=== PATIENT | male | born 1995 | race Caucasian/White ===

== ENCOUNTER 2021-05-20 02:56 | Emergency (ER) | payer SELFPAY ==
--- NOTE | 2021-05-20 05:38 | XRay Report ---
CHEST 1 VIEW INDICATION / CLINICAL INFORMATION: PALPITATIONS. COMPARISON: None available. FINDINGS: SUPPORT DEVICES: None. HEART / MEDIASTINUM: No significant abnormality. LUNGS / PLEURA: The lungs are clear. No pneumothorax. BONES: No significant osseous abnormality. ADDITIONAL FINDINGS: No significant additional findings. IMPRESSION: 1. No active cardiopulmonary disease. Signer Name: Ja Roman II, MD Signed: 05/20/2021 5:34 AM Workstation Name: [id number]
[2021-05-20 05:42] LABS: Bilirubin,Urine NEG (Negative); Blood,Urine NEG (Negative); Color,Urine Straw (Yellow); Protein,Urine <15 mg/dL mg/dL (Negative); Urobilinogen,Urine < 2.0 mg/dL (<2.0)
[2021-05-20 05:53] LABS: RBC,Urine < 1.0 /HPF (0.0-6.0); WBC,Urine < 1.0 /HPF (0.0-6.0)
[2021-05-20 05:55] LABS: Amphetamine Screen,Urine Negative; Benzodiazepines Screen,Urine Negative; Cocaine Screen,Urine Negative; Methadone Screen,Urine Negative; Opiate Screen,Urine Negative
[2021-05-20 05:57] LABS: Basophils % (Auto) 0.2 % (0.0-1.8); Eosinophils % (Auto) 0.1 % (0.0-4.3); Hematocrit 42.8 % (35.5-45.6); Hemoglobin 14.1 gm/dl (11.8-15.2); Lymphocytes # (Auto) 1.9 K/mm3 (1.2-5.4); Lymphocytes % (Auto) 11.3 % (13.4-35.0); Mean Corpuscular HGB Conc 33 % (32-34); Mean Corpuscular Volume 91 fl (84-94); Monocytes # (Auto) 0.9 K/mm3 (0.0-0.8); Monocytes % (Auto) 5.5 % (0.0-7.3); Platelet Count 220 K/mm3 (140-440); Red Blood Count 4.71 M/mm3 (3.65-5.03); Red Cell Distribution Width 12.8 % (13.2-15.2)
[2021-05-20 05:59] VITALS: BP 136/82
[2021-05-20 06:08] LABS: Cannabinoid Screen,Urine Positive
[2021-05-20 06:17] LABS: Alanine Aminotransferase 37 units/L (7-56); Albumin 4.6 g/dL (3.9-5); Blood Urea Nitrogen 11 mg/dL (9-20); Calcium 8.9 mg/dL (8.4-10.2); Hemolysis Index 37
[2021-05-20 06:18] LABS: BUN/Creatinine Ratio 16
[2021-05-20 06:38] LABS: Chol/HDL Ratio 3.38 %; HDL Cholesterol 52 mg/dL (40-59); LDL Cholesterol,Direct 113 mg/dL (50-130)
[2021-05-20] MEDS ORDERED: LACTATED RINGERS 1,000 ML IV ONE (06:52)
[2021-05-20] MEDS ORDERED: LORazepam 2 MG/ML VIAL IV NR (06:52)
--- NOTE | 2021-05-20 07:00 | Emergency Department Report ---
ED General Adult HPI - General Chief complaint: Arrhythmia/Palpitations Stated complaint: HEART RACING Time Seen by Provider: 05/20/21 06:08 Source: patient, RN notes reviewed Mode of arrival: Ambulatory Limitations: No Limitations - History of Present Illness Initial comments: The patient is a pleasant and cooperative 25-year-old gentleman, who is not known to myself previously, who is currently visiting from [place], presenting to the ER today with a complaint of painless heart racing and palpitations. Reports recreational marijuana gummy ingestion, and consumption of "a lot of soda." He denies physical pain. He does report a recent 2-hour airplane trip from [place] here to [place]. He denies additional injuries and complaints. Specifically denies personal/family history of DVT/PE/ACS. He believes his symptoms started after consumption of the marijuana. -: This morning Consistency: constant Improves with: none Worsens with: none Associated Symptoms: denies other symptoms - Related Data Previous Rx's Medication Instructions Recorded Last Taken Type Aspirin [Aspirin BABY CHEW TAB] 81 mg PO QDAY #30 tab.chew 05/20/21 Unknown Rx Allergies Allergy/AdvReac Type Severity Reaction Status Date / Time No Known Allergies Allergy Verified 05/20/21 07:48 ED Review of Systems ROS: Stated complaint: HEART RACING Other details as noted in HPI Constitutional: denies: fever Eyes: denies: vision change ENT: denies: epistaxis Respiratory: denies: cough Cardiovascular: palpitations. denies: chest pain Gastrointestinal: denies: abdominal pain, nausea, vomiting, hematemesis, melena, hematochezia Neurological: denies: weakness Psychiatric: anxiety. denies: visual hallucinations, suicidal thoughts ED Past Medical Hx - Medications Home Medications: Home Medications Medication Instructions Recorded Confirmed Last Taken Type Aspirin [Aspirin BABY CHEW TAB] 81 mg PO QDAY #30 tab.chew 05/20/21 Unknown Rx ED Physical Exam - General Limitations: No Limitations General appearance: alert, anxious - Head Head exam: Present: atraumatic, normocephalic - Eye Eye exam: Present: normal appearance, EOMI. Absent: nystagmus - ENT ENT exam: Present: normal exam, normal orophraynx, mucous membranes moist, normal external ear exam - Neck Neck exam: Present: normal inspection, full ROM. Absent: tenderness, meningismus - Respiratory Respiratory exam: Present: normal lung sounds bilaterally. Absent: respiratory distress, wheezes, rales, rhonchi, stridor, decreased breath sounds - Cardiovascular Cardiovascular Exam: Present: normal rhythm, tachycardia, normal heart sounds. Absent: bradycardia, irregular rhythm, systolic murmur, diastolic murmur, rubs, gallop - GI/Abdominal GI/Abdominal exam: Present: soft. Absent: distended, tenderness, guarding, rebound, rigid, pulsatile mass - Rectal Rectal exam: Present: deferred - Extremities Exam Extremities exam: Present: normal inspection, full ROM, other (2+ pulses noted in the bilateral upper and lower extremities. There is no palpable cord. negative Homans sign. Muscular compartments are soft. The pelvis is stable.). Absent: pedal edema, calf tenderness - Back Exam Back exam: Present: normal inspection, full ROM. Absent: tenderness, CVA tenderness (R), CVA tenderness (L), paraspinal tenderness, vertebral tenderness - Neurological Exam Neurological exam: Present: alert, oriented X3, normal gait, other (No facial droop. Tongue midline. Extraocular movements intact bilaterally. Facial sensation intact to light touch in V1, V2, V3 distribution bilaterally. 5 and a 5 strength in 4 extremities. Sensation intact to light touch in 4 extremities.). Absent: motor sensory deficit - Psychiatric Psychiatric exam: Present: anxious. Absent: homicidal ideation, suicidal ideation - Skin Skin exam: Present: warm, dry, intact, normal color. Absent: rash ED Course Vital Signs 05/20/21 05/20/21 05/20/21 03:06 03:25 05:57 Temperature 99.3 F Pulse Rate 134 H 108 H Respiratory 20 Rate Blood Pressure 136/82 Blood Pressure 138/58 [Right] O2 Sat by Pulse 98 100 99 Oximetry - Reevaluation(s) Reevaluation #1: 05/20/21 06:57 Differential diagnosis, including but not limited to: Marijuana intoxication, caffeine ingestion, electrolyte derangement, thyroid derangement, pulmonary embolism, myocarditis, pericarditis Assessment and plan: 25-year-old gentleman, who is afebrile, but tachycardic, after recent marijuana and caffeinated soda ingestion, who is presenting with painless palpitations. He is not tachypneic or hypoxic. No leg pain or leg swelling. Laboratory studies were sent prior to my personal evaluation of this patient. His leukocytosis is likely a stress reaction, secondary to the aforementioned consumption of marijuana and caffeinated soda. For unclear reasons, a troponin is sent on this patient who is not having chest pain, and comes back mildly elevated. I suspect that this is a type II troponin leak. Patient is awake, alert, oriented, sober, of sound mind, and exhibits decision- making capacity. He does not meet criteria for 1013 hold or involuntary confinement. Have recommended observation in the emergency room, repeat troponin, repeat EKG, we will send appropriate laboratory studies to risk stratify for pulmonary embolism, as well as CK, magnesium, and TSH. The patient is advised to discontinue marijuana and recreational drug consumption. He is agreeable to this plan of care. We will discuss with cardiology once the remainder of his diagnostic studies have resulted. 05/20/21 07:01 EKG #2 is interpreted at 06: 53 sinus rhythm, tachycardia, rate 105 bpm. Normal axis, normal P wave axis, motion artifact, QTC 4 4 4 ms. This is an abnormal EKG. This is not a STEMI 05/20/21 08:34 D-dimer negative. TSH unremarkable. Repeat troponin downtrending. Repeat EKG unremarkable. Patient ambulatory with a steady gait and is clinically sober. He is asking to be discharged. We will discussed with cardiology, but anticipate discharge with close conservative management and outpatient follow-up 05/20/21 08:39 Offered patient fluids and Ativan, which he declined. These are not medically necessary at this time. 05/20/21 09:30 Patient is very anxious to leave. Have again offered to patient that we are waiting to discuss with cardiology on-call. Patient adamant that he will not leave AGAINST MEDICAL ADVICE. Patient presents as awake, alert, oriented, sober, of sound mind, and exhibits decision-making capacity. Risks of leaving, including , disability, paralysis, permanent loss of quality of life are discussed with the patient, who was able to articulate these risks in his own words. This conversation was witnessed by nurse Lilia De Jesus Patient is informed that he may return to the emergency room right away if and when he changes his mind ED Medical Decision Making - Lab Data Result diagrams: 05/20/21 05:17 05/20/21 05:17 Vital Signs 05/20/21 05/20/21 05/20/21 03:06 03:25 05:57 Temperature 99.3 F Pulse Rate 134 H 108 H Respiratory 20 Rate Blood Pressure 136/82 Blood Pressure 138/58 [Right] O2 Sat by Pulse 98 100 99 Oximetry Lab Results 05/20/21 05/20/21 05/20/21 Range/Units 05:17 05:17 05:17 WBC 17.0 H (4.5-11.0) K/mm3 RBC 4.71 (3.65-5.03) M/mm3 Hgb 14.1 (11.8-15.2) gm/dl Hct 42.8 (35.5-45.6) % MCV 91 (84-94) fl MCH 30 (28-32) pg MCHC 33 (32-34) % RDW 12.8 L (13.2-15.2) % Plt Count 220 (140-440) K/mm3 Lymph % (Auto) 11.3 L (13.4-35.0) % [place] % (Auto) 5.5 (0.0-7.3) % Eos % (Auto) 0.1 (0.0-4.3) % Baso % (Auto) 0.2 (0.0-1.8) % Lymph # (Auto) 1.9 (1.2-5.4) K/mm3 [place] # (Auto) 0.9 H (0.0-0.8) K/mm3 Eos # (Auto) 0.0 (0.0-0.4) K/mm3 Baso # (Auto) 0.0 (0.0-0.1) K/mm3 Seg Neutrophils % 82.9 H (40.0-70.0) % Seg Neutrophils # 14.1 H (1.8-7.7) K/mm3 Sodium 134 L (137-145) mmol/L Potassium 3.5 L (3.6-5.0) mmol/L Chloride 99.5 (98-107) mmol/L Carbon Dioxide 20 L (22-30) mmol/L Anion Gap 18 mmol/L BUN 11 (9-20) mg/dL Creatinine 0.7 L (0.8-1.3) mg/dL Estimated GFR > 60 ml/min BUN/Creatinine Ratio 16 % Glucose 112 H (75-100) mg/dL Calcium 8.9 (8.4-10.2) mg/dL Total Bilirubin 0.30 (0.1-1.2) mg/dL AST 35 (5-40) units/L ALT 37 (7-56) units/L Alkaline Phosphatase 79 (35-129) units/L Troponin T 0.062 H (0.00-0.029) ng/mL Total Protein 7.3 (6.3-8.2) g/dL Albumin 4.6 (3.9-5) g/dL Albumin/Globulin Ratio 1.7 % Triglycerides 103 (2-149) mg/dL Cholesterol 176 (50-199) mg/dL LDL Cholesterol Direct 113 (50-130) mg/dL HDL Cholesterol 52 (40-59) mg/dL Cholesterol/HDL Ratio 3.38 % Urine Color (Yellow) Urine Turbidity (Clear) Urine pH (5.0-7.0) Ur Specific [place] (1.003-1.030) Urine Protein (Negative) mg/dL Urine Glucose (UA) (Negative) mg/dL Urine Ketones (Negative) mg/dL Urine Blood (Negative) Urine Nitrite (Negative) Urine Bilirubin (Negative) Urine Urobilinogen (<2.0) mg/dL Ur Leukocyte Esterase (Negative) Urine WBC (Auto) (0.0-6.0) /HPF Urine RBC (Auto) (0.0-6.0) /HPF Urine Opiates Screen Urine Methadone Screen Ur Barbiturates Screen Ur Phencyclidine Scrn Ur Amphetamines Screen U Benzodiazepines Scrn Urine Cocaine Screen U Marijuana (THC) Screen Drugs of Abuse Note Plasma/Serum Alcohol < 0.01 (0-0.07) % 05/20/21 05/20/21 Range/Units Unknown Unknown WBC (4.5-11.0) K/mm3 RBC (3.65-5.03) M/mm3 Hgb (11.8-15.2) gm/dl Hct (35.5-45.6) % MCV (84-94) fl MCH (28-32) pg MCHC (32-34) % RDW (13.2-15.2) % Plt Count (140-440) K/mm3 Lymph % (Auto) (13.4-35.0) % [place] % (Auto) (0.0-7.3) % Eos % (Auto) (0.0-4.3) % Baso % (Auto) (0.0-1.8) % Lymph # (Auto) (1.2-5.4) K/mm3 [place] # (Auto) (0.0-0.8) K/mm3 Eos # (Auto) (0.0-0.4) K/mm3 Baso # (Auto) (0.0-0.1) K/mm3 Seg Neutrophils % (40.0-70.0) % Seg Neutrophils # (1.8-7.7) K/mm3 Sodium (137-145) mmol/L Potassium (3.6-5.0) mmol/L Chloride (98-107) mmol/L Carbon Dioxide (22-30) mmol/L Anion Gap mmol/L BUN (9-20) mg/dL Creatinine (0.8-1.3) mg/dL Estimated GFR ml/min BUN/Creatinine Ratio % Glucose (75-100) mg/dL Calcium (8.4-10.2) mg/dL Total Bilirubin (0.1-1.2) mg/dL AST (5-40) units/L ALT (7-56) units/L Alkaline Phosphatase (35-129) units/L Troponin T (0.00-0.029) ng/mL Total Protein (6.3-8.2) g/dL Albumin (3.9-5) g/dL Albumin/Globulin Ratio % Triglycerides (2-149) mg/dL Cholesterol (50-199) mg/dL LDL Cholesterol Direct (50-130) mg/dL HDL Cholesterol (40-59) mg/dL Cholesterol/HDL Ratio % Urine Color Straw (Yellow) Urine Turbidity Clear (Clear) Urine pH 6.0 (5.0-7.0) Ur Specific [place] 1.005 (1.003-1.030) Urine Protein <15 mg/dl (Negative) mg/dL Urine Glucose (UA) >=500 (Negative) mg/dL Urine Ketones Neg (Negative) mg/dL Urine Blood Neg (Negative) Urine Nitrite Neg (Negative) Urine Bilirubin Neg (Negative) Urine Urobilinogen < 2.0 (<2.0) mg/dL Ur Leukocyte Esterase Neg (Negative) Urine WBC (Auto) < 1.0 (0.0-6.0) /HPF Urine RBC (Auto) < 1.0 (0.0-6.0) /HPF Urine Opiates Screen Negative Urine Methadone Screen Negative Ur Barbiturates Screen Negative Ur Phencyclidine Scrn Negative Ur Amphetamines Screen Negative U Benzodiazepines Scrn Negative Urine Cocaine Screen Negative U Marijuana (THC) Screen Positive Drugs of Abuse Note Disclamer Plasma/Serum Alcohol (0-0.07) % - EKG Data -: EKG Interpreted by Me EKG shows normal: sinus rhythm Rate: tachycardia - EKG Data When compared to previous EKG there are: previous EKG unavailable 05/20/21 06:55 The EKG is interpreted at 03: 10 Sinus rhythm, tachycardia, rate 136 bpm. Normal axis, normal P wave axis, right bundle branch block, this is not a STEMI, high left ventricular voltage - Radiology Data Radiology results: pending, report reviewed, image reviewed CHEST 1 VIEW INDICATION / CLINICAL INFORMATION: PALPITATIONS. COMPARISON: None available. FINDINGS: SUPPORT DEVICES: None. HEART / MEDIASTINUM: No significant abnormality. LUNGS / PLEURA: The lungs are clear. No pneumothorax. BONES: No significant osseous abnormality. ADDITIONAL FINDINGS: No significant additional findings. IMPRESSION: 1. No active cardiopulmonary disease. Signer Name: Ja Roman II, MD Signed: 05/20/2021 4:34 AM Workstation Name: [id number] Critical care attestation.: If time is entered above; I have spent that time in minutes in the direct care of this critically ill patient, excluding procedure time. ED Disposition Clinical Impression: Marijuana use, Palpitations, Elevated troponin Disposition: 07 LEFT AGAINST MEDICAL ADVICE Is pt being admited?: No Does the pt Need Aspirin: No Condition: Undetermined Instructions: Cannabis Use Disorder, Palpitations, [id number] Additional Instructions: Recommend that patient discontinue consumption of caffeine, energy drinks, st imulants, marijuana, alcohol, tobacco and smoke products. Please return to the emergency room right away with new pain, worsened pain, migration of pain, projectile vomiting, change in mental status, confusion, inability tolerate liquid feeds, new, worsened or different symptoms not present on the initial emergency room evaluation As we discussed, you have left the hospital/emergency room AGAINST MEDICAL ADVICE. By leaving, you risked , disability, paralysis, permanent loss of quality of life. The ER is open 24 hours a day, 7 days a week. It never closes. Please return to the emergency room right away if and when you change your mind. If you decide not to return to the emergency room, please follow-up with the listed physician referrals as soon as possible. Referrals: [facility] [Provider Group] - 3-5 Days [facility] - 3-5 Days [facility] [Provider Group] - 3-5 Days Forms: AMA Form
[2021-05-20 08:10] LABS: INR 0.9 (0.87-1.13)
--- NOTE | 2021-05-20 18:08 | Electrocardiograph Report ---
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
--- NOTE | 2021-05-22 12:01 | Electrocardiograph Report ---
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
== END 2021-05-20 08:55 | disposition left against medical advice (07) ==
LOC: ED 02:56
DX: R00.2 Palpitations (principal); F12.90 Cannabis use, unspecified, uncomplicated; R74.8 Abnormal levels of other serum enzymes; R79.1 Abnormal coagulation profile; Z79.82 Long term (current) use of aspirin; Z79.899 Other long term (current) drug therapy
CPT/HCPCS: 36415; 71045; 80053; 80061; 80307; 81001; 82550; 83735; 84443; 84484; 85025; 85379; 85610; 93005; 99284; J2060; 80320; G0480; J7120